=== PATIENT | female | born 1960 | race Caucasian/White ===

== ENCOUNTER 2017-03-22 20:10 | Emergency (ER) | payer MEDICAID ==
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
--- NOTE | 2017-03-24 10:20 | RADIOLOGY REPORT ---
EXAM: LEFT ANKLE HISTORY: ANKLE PAIN. TECHNIQUE: Three views of the left ankle were obtained. Comparison: None. Encounter: Initial. FINDINGS: Mild diffuse soft tissue swelling. No radiographic evidence for an acute fracture or dislocation. Prominent calcaneal spurs. IMPRESSION: PROMINENT CALCANEAL SPURS. MILD SOFT TISSUE SWELLING. JOB NUMBER: [id number] MTDD
== END 2017-03-22 22:16 | disposition home or self-care (01) ==
LOC: ER 20:10
DX: S93.402A Sprain of unspecified ligament of left ankle, initial encounter (principal); V19.3XXA Pedal cyclist (driver) (passenger) injured in unspecified nontraffic accident, initial encounter; Y92.410 Unspecified street and highway as the place of occurrence of the external cause
CPT/HCPCS: 99283